=== PATIENT | male | born 1980 | race Caucasian/White ===

== ENCOUNTER 2019-02-10 08:12 | Day surgery (SDC) | payer OTHER ==
[~2019-02-10] VITALS: Ht 185.4 cm; Wt 133.8 kg
[2019-02-10] MEDS ORDERED: GLIP10TA3 PO (09:00)
[2019-02-10] MEDS ORDERED: LISI-424 PO (09:00)
[2019-02-10] MEDS ORDERED: METF500T PO (09:00)
[2019-02-10] MEDS ORDERED: LEVO0.124 PO (09:00)
[2019-02-10] MEDS ORDERED: MIDAZOLAM 2 MG/2 ML VIAL ONE (11:03)
[2019-02-10] MEDS ORDERED: LIDOCAINE 2% 100 MG/5 ML UJET TP ONE (11:03)
[2019-02-10] MEDS ORDERED: fentaNYL 0.05 MG/ML VIAL ONE (11:03)
== END 2019-02-10 11:45 | disposition home or self-care (01) ==
LOC: MDS 08:12 → MMU 08:15 → MDS 11:45
PROVIDERS: ATTEND Internal Medicine Gastroenterology
DX: K52.9 Noninfective gastroenteritis and colitis, unspecified (principal); I10 Essential (primary) hypertension; E11.9 Type 2 diabetes mellitus without complications; E66.9 Obesity, unspecified; Z68.38 Body mass index [BMI] 38.0-38.9, adult; Z72.89 Other problems related to lifestyle; Z79.84 Long term (current) use of oral hypoglycemic drugs; Z79.899 Other long term (current) drug therapy
CPT/HCPCS: 45378; J2250; J3010